=== PATIENT | female | born 2005 | race Caucasian/White ===

== ENCOUNTER 2023-06-22 13:33 | Emergency (ER) | payer OTHER, SELFPAY ==
[2023-06-22 13:39] VITALS: BP 117/77; PULSE 91; RESP 16; TEMP 36.2; O2SAT 98; BMI 25.1
--- NOTE | 2023-06-22 13:53 | ED.GENADULT ---
HPI - General Adult General Chief complaint: Head Injury/Pain Stated complaint: Hit head 4 days ago, headache since Time Seen by Provider: 06/22/23 13:37 Source: patient and family Mode of arrival: ambulatory Limitations: no limitations History of Present Illness HPI narrative: 18-year-old female coming in today complaining of a headache. She states that 4 days ago a picture board fell off the wall and hit her on the side of the head. She states that she has a headache on the left side of the head and she has bilateral neck pain. She has not taken any [id number] pain medications or tried heat or ice. She denies difficulty concentrating. She denies any focal neurologic deficits. She denies vomiting. She states that she has chronic nausea and this is unchanged. She denies difficulty doing her activities of daily living. She denies changes in her vision or hearing. Related Data Allergies Allergy/AdvReac Type Severity Reaction Status Date / Time No Known Drug Allergies Allergy Verified 06/22/23 13:39 Review of Systems Status of ROS: Reports: 10 or more systems reviewed and unremarkable except as noted in History and below Exam Narrative: Exam Narrative: Well-nourished well-developed patient in no acute distress. Alert and oriented. Answers questions appropriately. Mood and affect are appropriate. Thoughts are goal oriented and rational. No tangential or magical thinking noted. Patient speaks in full sentences without needing to catch her breath. HEENT: Normocephalic atraumatic. Pupils are equally round reactive to light. Extraocular muscles are intact. Conjunctivae are moist without any icterus noted. Moist mucous membranes. Posterior pharynx is normal. Neck is soft without any lymphadenopathy or thyromegaly. No masses are appreciated. There is no bruising or tenderness noted over the left temporal or parietal areas of the scalp. Patient does have multiple nose piercings. Cardiovascular: Heart is regular rate and rhythm S1 and S2 are present without any murmurs. Lungs: Clear to auscultation bilaterally no wheezes rhonchi or rales are appreciated. Patient takes deep breaths without any discomfort. Skin: Well perfused without any obvious rashes. Strength is 5/5 of the upper and lower extremities. Romberg sign is negative. Cranial nerves 3-12 are normal. There is no nystagmus either horizontally or vertically. Gait is normal. Const: Vital Signs, click to edit/add: Vital Signs - 24 hr 06/22/23 13:39 Temperature 97.2 F L Pulse Rate [Right Pulse Oximeter] 91 Respiratory Rate 16 Blood Pressure [Ri ght Upper Arm] 117/77 Pulse Oximetry 98 Oxygen Delivery Me thod Room Air Course Vital Signs Vital signs: Initial Vital Signs Temperature 97.2 F L 06/22/23 13:39 Temperature Source Temporal Artery Scan 06/22/23 13:39 Pulse Rate 91 06/22/23 13:39 Pulse Rhythm Regular 06/22/23 13:39 Pulse Strength 3+ Normal 06/22/23 13:39 Respiratory Rate 16 06/22/23 13:39 Blood Pressure 117/77 06/22/23 13:39 Blood Pressure Mean 90 06/22/23 13:39 Blood Pressure Position Sitting 06/22/23 13:39 Pulse Oximetry 98 06/22/23 13:39 Oxygen Delivery Method Room Air 06/22/23 13:39 Vital Signs Temperature 97.2 F L 06/22/23 13:39 Pulse Rate 91 06/22/23 13:39 Respiratory Rate 16 06/22/23 13:39 Blood Pressure 117/77 06/22/23 13:39 Pulse Oximetry 98 06/22/23 13:39 Oxygen Delivery Method Room Air 06/22/23 13:39 Temperature 97.2 F L 06/22/23 13:39 Pulse Rate 91 06/22/23 13:39 Respiratory Rate 16 06/22/23 13:39 Blood Pressure 117/77 06/22/23 13:39 Pulse Oximetry 98 06/22/23 13:39 Oxygen Delivery Method Room Air 06/22/23 13:39 Medical Decision Making MDM Narrative Medical decision making narrative: 18-year-old female with a closed head injury that occurred 4 days ago presenting with mild headache. We discussed symptomatic treatment and reasons for follow-up. Discharge Plan Discharge Clinical Impression: Closed head injury Patient Disposition: Home, Self-Care Condition: Stable Additional Instructions: Okay to use ibuprofen or Tylenol as needed/as directed for headache. Okay to use a heating pad across the lower neck/shoulder area. If you feel that you are not improving over the next week, follow-up with your primary care provider. Follow Up/Referrals: Mihai Real MD [Primary Care Provider] - Stand Alone Forms: [employer] Info Instructions
== END 2023-06-22 14:08 | disposition home or self-care (01) ==
LOC: ED 14:01
PROVIDERS: Emergency Provider Family Medicine; PCP Family Medicine
DX: S09.90XA Unspecified injury of head, initial encounter (principal); W22.8XXA Striking against or struck by other objects, initial encounter
CPT/HCPCS: 99283